=== PATIENT | male | born 1995 | race Caucasian/White ===

== ENCOUNTER 2019-05-25 03:07 | Emergency (ER) | payer OTHER ==
--- NOTE | 2019-05-25 03:36 | EDM.PDOC ---
ED HPI GENERAL MEDICAL PROBLEM - General Chief Complaint: Fever Stated Complaint: FEVER, BODY ACHES, SHAKING Time Seen by Provider: 05/25/19 03:12 - History of Present Illness INITIAL COMMENTS - FREE TEXT/NARRATIVE: HISTORY AND PHYSICAL: History of present illness: Patient is a healthy 24-year-old male who did not get his influenza shot this year and presents with a 1-1/2 day history of cough occasionally productive of phlegm sinus congestion and drainage body aches fevers chills and bilateral ear pain with a slight sore throat. Patient says he was around somebody who was ill on Thursday and his symptoms started on Thursday morning, approximately a day and a half ago. The patient has had some episodic vomiting with coughing but no diarrhea and has been eating and drinking normally. He denies any specific headache or neck pain and no back pain. He has taken one dose of over-the- counter Mucinex and a dose of ibuprofen as well as a dose of aspirin but does not feel any better so came for evaluation. He does not have a local family doctor Review of systems: As per history of present illness and below otherwise all systems reviewed and negative. Past medical history: As per history of present illness and as reviewed below otherwise noncontributory. Surgical history: As per history of present illness and as reviewed below otherwise noncontributory. Social history: No reported history of drug or alcohol abuse. Family history: As per history of present illness and as reviewed below otherwise noncontributory. Physical exam: General: Well-developed well-nourished man who is nontoxic and has nasal quality to voice but is not breathless. Vital signs are noted by me HEENT: Atraumatic, normocephalic, pupils reactive, negative for conjunctival pallor or scleral icterus, mucous membranes moist, throat clear, neck supple, nontender, trachea midline. TMs are dulled bilaterally and there is no evidence of redness or bulging bilaterally, there is no cervical adenopathy or nuchal rigidity no tenderness of the sinuses with palpation. Lungs: Clear to auscultation, breath sounds equal bilaterally, chest nontender. No wheezing stridor work of breathing Heart: S1S2, regular rate and rhythm no overt murmurs Abdomen: Soft, nondistended, nontender. NABS Pelvis: Deferred Genitourinary: Deferred. Rectal: Deferred. Extremities: Atraumatic, full range of motion without defects or deficits and no pedal edema Neurovascular unremarkable. Neuro: Awake, alert, oriented. Cranial nerves II through XII unremarkable. Cerebellum unremarkable. Motor and sensory unremarkable throughout. Exam nonfocal. Diagnostics: Influenza rapid strep Therapeutics: none I discussed with the patient's symptomatic care at home using [id number] preps as his symptoms are very brief and very localized to sinus and nasal congestion and coughing consistent will what we have been seeing here in the emergency department with multiple patients. I did encourage him to stop smoking a few cigarettes that he does smoke and to get connected in the clinic for reevaluation as needed. Impression: URI with cough Definitive disposition and diagnosis as appropriate pending reevaluation and review of above. generalized Pain Score (Numeric/FACES): 8 - Related Data Allergies Allergy/AdvReac Type Severity Reaction Status Date / Time No Known Allergies Allergy Verified 05/25/19 03:21 Home Meds: Home Meds . [No Known Home Meds] 05/25/19 [History] Past Medical History HEENT History: Reports: None Cardiovascular History: Reports: None Respiratory History: Reports: None Gastrointestinal History: Reports: None Genitourinary History: Reports: None Musculoskeletal History: Reports: None Neurological History: Reports: None Psychiatric History: Reports: None Endocrine/Metabolic History: Reports: None Insulin Pump Model and Vegetable Picker: None Hematologic History: Reports: None Immunologic History: Reports: None Oncologic (Cancer) History: Reports: None Dermatologic History: Reports: None - Infectious Disease History Infectious Disease History: Reports: None - Past Surgical History Head Surgeries/Procedures: Reports: None Social & Family History - Family History Family Medical History: Noncontributory - Tobacco Use Smoking Status *Q: Current Some Day Smoker Years of Tobacco use: 1 Packs/Tins Daily: 0.2 - Caffeine Use Caffeine Use: Reports: Soda - Recreational Drug Use Recreational Drug Use: No ED ROS GENERAL - Review of Systems Review Of Systems: Comprehensive ROS is negative, except as noted in HPI. ED EXAM, GENERAL - Physical Exam Exam: See Below (See dictation) Course - Vital Signs Last Recorded V/S: Last Vital Signs Temp 37.5 C 05/25/19 03:21 Pulse 82 05/25/19 03:21 Resp 18 05/25/19 03:21 BP 132/66 05/25/19 03:21 Pulse Ox 98 05/25/19 03:21 - Orders/Labs/Meds Orders: Active Orders 24 hr Category Date Time Status CULTURE STREP A CONFIRMATION [] Stat Lab 05/25/19 03:26 Results STREP SCRN A RAPID W CULT CONF [] Stat Lab 05/25/19 03:26 Results Departure - Departure Time of Disposition: 03:57 Disposition: Home, Self-Care 01 Condition: Good Clinical Impression: URI with cough and congestion - Discharge Information Referrals: PCP,None [Primary Care Provider] - Forms: ED Department Discharge Additional Instructions: The following information is given to patients seen in the emergency department who are being discharged to home. This information is to outline your options for follow-up care. We provide all patients seen in our emergency department with a follow-up referral. The need for follow-up, as well as the timing and circumstances, are variable depending upon the specifics of your emergency department visit. If you don't have a primary care physician on staff, we will provide you with a referral. We always advise you to contact your personal physician following an emergency department visit to inform them of the circumstance of the visit and for follow-up with them and/or the need for any referrals to a consulting specialist. The emergency department will also refer you to a specialist when appropriate. This referral assures that you have the opportunity for followup care with a specialist. All of these measure are taken in an effort to provide you with optimal care, which includes your followup. Under all circumstances we always encourage you to contact your private physician who remains a resource for coordinating your care. When calling for followup care, please make the office aware that this follow-up is from your recent emergency room visit. If for any reason you are refused follow-up, please contact the [facility] emergency department at and ask to speak to the emergency department charge nurse. Primary care- Internal Medicine and Family [address] [id number] Push hydration and rest as much as possible. Use [id number] antihistamine such as Zyrtec Claritin or Benadryl to help dry out or sinus fluid and reduce pressure in her sinuses and ears and also use Flonase nasal spray to reduce swelling of the nasal passages and promote drainage of fluid. Use over-the- counter Mucinex and other cough medicines as you choose to help expectoration of any phlegm. For fevers ID aches and chills use [id number] ibuprofen/ Motrin or Tylenol. Please call and schedule a follow-up appointment in the clinic for further care and reevaluation and return to ER as needed and as discussed - My Orders Last 24 Hours: My Active Orders 05/25/19 03:26 CULTURE STREP A CONFIRMATION [RM] Stat STREP SCRN A RAPID W CULT CONF [RM] Stat - Assessment/Plan Last 24 Hours: My Active Orders 05/25/19 03:26 CULTURE STREP A CONFIRMATION [RM] Stat STREP SCRN A RAPID W CULT CONF [] Stat
== END 2019-05-25 04:06 | disposition home or self-care (01) ==
LOC: MW.ED 03:07
DX: J06.9 Acute upper respiratory infection, unspecified (principal); F17.210 Nicotine dependence, cigarettes, uncomplicated
CPT/HCPCS: 87081; 87804; 87880-QW; 99282; 99283

== ENCOUNTER 2019-12-14 08:35 | Emergency (ER) | payer SELFPAY ==
[2019-12-14] MEDS ORDERED: Diazepam 2 MG Tab PO ONE (08:48)
[2019-12-14] MEDS ORDERED: Ibuprofen 600 MG Tab PO ONE (08:48)
[2019-12-14] MEDS ORDERED: Penicillin G Benzathine 1,200,000 Units/2 ML Syringe IM ONE (08:48)
[2019-12-14] MEDS ORDERED: Dexamethasone 4 MG Tab PO ONE (08:48)
--- NOTE | 2019-12-14 08:57 | EDM.PDOC ---
ED [facility] GENERAL MEDICAL PROBLEM - General Chief Complaint: Fever Stated Complaint: SORE THROAT/FEVER Time Seen by Provider: 12/14/19 08:43 - History of Present Illness INITIAL COMMENTS - FREE TEXT/NARRATIVE: HISTORY AND PHYSICAL: History of present illness: This 24-year-old otherwise healthy, immunized male presents to the emergency department complaining of his third day of sore throat. He first noticed this sore throat on Thursday night. He woke up in the morning to go to the work and he took Tylenol and aspirin and his sore throat got better for the majority of the day. It returned at night and this morning it was very bad so he came to the emergency department. He has pain with swallowing but no difficulty swallowing. He is able to tolerate liquids. He started running a fever. He does not complain of pain of range of motion of the neck. No new sexual contacts. No other associated signs or symptoms. No other modifying, aggravating or alleviating factors. Review of systems: A 10-point review of systems, other than pertinent positives and negatives as stated per HPI, is otherwise negative. Past medical history: As per history of present illness and as reviewed below otherwise noncontributory. Surgical history: As per history of present illness and as reviewed below otherwise noncontributory. Social history: No reported history of drug or alcohol abuse. Family history: As per history of present illness and as reviewed below otherwise noncontributory. Physical exam: VITAL SIGNS: Reviewed. GENERAL: Appears to be mildly ill. He is mildly uncomfortable. HEAD: No signs of head trauma. EYES: Pupils are equal. Extraocular motions intact. EARS: Hearing grossly intact. MOUTH: Oropharynx shows bilateral tonsillar swelling with some exudate. Also some mild petechiae. There is no unilateral swelling. The TMs are normal bilaterally. There is tender anterior cervical lymphadenopathy. There is no posterior lymphadenopathy. There is no pain with range of motion or meningeal signs. NECK: No JVD, tender bilateral anterior cervical lymphadenopathy. CHEST: Chest with clear breath sounds bilaterally. No wheezes, rales, or rhonchi. CARDIAC: Tachycardia. Regular rhythm. No murmur appreciated. VASCULAR: Peripheral pulses normal and equal in all extremities. ABDOMEN: Soft, without detectable tenderness. No sign of distention. No rebound or guarding, and no masses palpated. MUSCULOSKELETAL: Good range of motion of all major joints. Extremities without clubbing, cyanosis or edema. NEUROLOGIC EXAM: Alert and oriented x 3. No focal sensory or motor deficits. Speech normal. Follows commands. PSYCHIATRIC: Mood normal. SKIN: No rash or lesions. Initial Differential Diagnosis & Plan: Strep pharyngitis, mononucleosis, viral pharyngitis, peritonsillar abscess, retropharyngeal abscess, diphtheria. No evidence of diphtheria. Patient is immunized. States his immunization up-to -date. There is no organomegaly. I percussed the abdomen and palpated checking for hepatomegaly and splenomegaly. These are not present. The patient is mildly tachycardic and this is likely secondary to his fever. My diagnostic impression: 1. Acute pharyngitis (4 out of 4 Centor criteria) 2. Presumed strep pharyngitis; cultures are pending 3. Acute febrile illness with tachycardia Treatment will include Bicillin 1,200,000 units IM, Decadron 10 mg p.o., Tylenol 1 g p.o., and Motrin 600 mg p.o. After this the patient can be discharged. We will prescribe Tylenol and Motrin for at home. - Related Data Allergies Allergy/AdvReac Type Severity Reaction Status Date / Time No Known Allergies Allergy Verified 12/14/19 08:52 Home Meds: Home Meds Acetaminophen [Tylenol Extra Strength] 1,000 mg PO Q6HR PRN #60 tablet 12/14/19 [Rx] Ibuprofen [Motrin] 600 mg PO Q6H PRN #30 tab 12/14/19 [Rx] Lactobacillus 3/Fos/Pantethine [Probiotic & Acidophilus] 1 each PO BID 30 Days # 60 capsule 12/14/19 [Rx] Past Medical History HEENT History: Reports: None Cardiovascular History: Reports: None Respiratory History: Reports: None Gastrointestinal History: Reports: None Genitourinary History: Reports: None Musculoskeletal History: Reports: None Neurological History: Reports: None Psychiatric History: Reports: None Endocrine/Metabolic History: Reports: None Insulin Pump Model and Business Rules Analyst: None Hematologic History: Reports: None Immunologic History: Reports: None Oncologic (Cancer) History: Reports: None Dermatologic History: Reports: None - Infectious Disease History Infectious Disease History: Reports: None - Past Surgical History Head Surgeries/Procedures: Reports: None Social & Family History - Family History Family Medical History: Noncontributory - Caffeine Use Caffeine Use: Reports: Soda ED ROS ENT - Review of Systems Review Of Systems: Unable To Obtain (noted) Reason Not Obtained: noted ED EXAM, ENT - Physical Exam Exam: Not Obtained (noted) Reason Not Obtained: noted Course - Vital Signs Last Recorded V/S: Last Vital Signs Temp 100.1 F 12/14/19 08:53 Pulse 112 H 12/14/19 08:53 Resp 17 12/14/19 08:53 BP 107/59 L 12/14/19 08:53 Pulse Ox 98 12/14/19 08:53 - Orders/Labs/Meds Orders: Active Orders 24 hr Category Date Time Status STREP SCRN A RAPID W CULT CONF [RM] Stat Lab 12/14/19 08:47 Ordered Meds: Medications Discontinued Medications Generic Name Dose Route Start Last Admin Trade Name Freq PRN Reason Stop Dose Admin Dexamethasone 8 mg 12/14/19 08:48 Dexamethasone PO 12/14/19 08:49 ONETIME ONE Diazepam 2 mg 12/14/19 08:48 Valium PO 12/14/19 08:49 ONETIME ONE Ibuprofen 600 mg 12/14/19 08:48 Motrin PO 12/14/19 08:49 ONETIME ONE Penicillin G Benzathine 1.2 millunits 12/14/19 08:48 Bicillin L-A IM 12/14/19 08:49 ONETIME ONE Departure - Departure Time of Disposition: 08:52 Disposition: Home, Self-Care 01 Clinical Impression: Pharyngitis, Acute febrile illness - Discharge Information *PRESCRIPTION DRUG MONITORING PROGRAM REVIEWED*: Not Applicable *COPY OF PRESCRIPTION DRUG MONITORING REPORT IN PATIENT HUGH: Not Applicable Prescriptions: Acetaminophen [Tylenol Extra Strength] 1,000 mg PO Q6HR PRN #60 tablet PRN Reason: Pain Ibuprofen [Motrin] 600 mg PO Q6H PRN #30 tab PRN Reason: Pain Lactobacillus 3/Fos/Pantethine [Probiotic & Acidophilus] 1 each PO BID 30 Days # 60 capsule Instructions: Strep Throat, Adult, [id number], Fever, Adult, [id number] Referrals: PCP,None [Primary Care Provider] - Forms: ED Department Discharge Additional Instructions: The following information is given to patients seen in the emergency department who are being discharged to home. This information is to outline your options for follow-up care. We provide all patients seen in our emergency department with a follow-up referral. The need for follow-up, as well as the timing and circumstances, are variable depending upon the specifics of your emergency department visit. If you don't have a primary care physician on staff, we will provide you with a referral. We always advise you to contact your personal physician following an emergency department visit to inform them of the circumstance of the visit and for follow-up with them and/or the need for any referrals to a consulting specialist. The emergency department will also refer you to a specialist when appropriate. This referral assures that you have the opportunity for follow-up care with a specialist. All of these measure are taken in an effort to provide you with optimal care, which includes your follow-up. Under all circumstances we always encourage you to contact your private physician who remains a resource for coordinating your care. When calling for follow-up care, please make the office aware that this follow-up is from your recent emergency room visit. If for any reason you are refused follow-up, please contact the [facility] Emergency Department at and asked to speak to the emergency department charge nurse. Thank you for coming to [facility] emergency department for your care today. It was Dr. Leary's pleasure to take care of you. You have been diagnosed with pharyngitis. This is most likely caused by strep throat. This is a bacterial infection that is very common. Dr. Leary screened you for mononucleosis by clinical exam. You do not have an enlarged spleen or liver. You do not have lymph node swelling behind the head. Given these findings, your lack of cough, your fever, and your tender lymph nodes under your chin your clinical syndrome is consistent with strep throat. We have sent a culture for confirmation. Please return to the emergency department for difficulty swallowing, pain with range of motion of the neck, or failure to improve. We are always happy to see you. We have given you a shot of antibiotics today which should take care of all of your antibiotic needs. You do not need antibiotics at home. Sepsis Event Note - Focused Exam Vital Signs: Vital Signs Temp Pulse Resp BP Pulse Ox 12/14/19 08:53 100.1 F 112 H 17 107/59 L 98 Date Exam was Performed: 12/14/19 Time Exam was Performed: 08:57 - My Orders Last 24 Hours: My Active Orders 12/14/19 08:47 STREP SCRN A RAPID W CULT CONF [RM] Stat - Assessment/Plan Last 24 Hours: My Active Orders 12/14/19 08:47 STREP SCRN A RAPID W CULT CONF [RM] Stat
== END 2019-12-14 09:36 | disposition home or self-care (01) ==
LOC: MW.ED 08:35
DX: J02.9 Acute pharyngitis, unspecified (principal)
CPT/HCPCS: 87081; 87880-QW; 96372; 99282; 99283; A9270-GY; J0561; J8540